=== PATIENT | male | born 1930 | race Caucasian/White ===

== ENCOUNTER 2020-09-08 15:12 | Inpatient (IN) | payer MEDICARE, OTHER ==
[~2020-09-08] VITALS: Ht 175.3 cm; Wt 79.8 kg
--- NOTE | ~2020-09-08 | EMS ---
[place] [address] EMS Patient Care Report Name: DARIO ACOSTA Room: [address] IN [facility]#: [id number] Admission: 09/08/20 Attend Phys: Thomas Olivarez Discharge: Date of : [birth year] Report #: [id number] THIS REPORT FOR: //name// Report Transmitted: 09/08/2020 16:41 EMS Care Summary [facility] Incident [id number] @ 09/08/2020 14:14 Incident Location [address] [place] [address] Patient DARIO ACOSTA Male, 89 Years 1930 Patient Address [address] [place] [address] Patient History Chronic Obstructive Pulmonary Disease (COPD),Dementia, Patient Allergies No known allergies, Patient Medications Flomax, Prednisone, Albuterol, Chief Complaint Dehydration Disposition Transported No Lights/[place] Dispatch Reason Sick Person Transported To [facility] Narrative Dispatch: [facility] was dispatched for a male patient experiencing diarrhea and generalized weakness. Med 1 copied tones and [place] [address] EMS Patient Care Report Name: DARIO ACOSTA Room: [address] IN [facility]#: [id number] Admission: 09/08/20 Attend Phys: Thomas Olivarez Discharge: Date of : [birth year] Report #: [id number] Chief Complaint: Med 1 arrived on scene to find the patient lying supine in his bed. Patient states he feels "sick" and has had diarrhea. Patient is alert and does not appear to be in any distress or discomfort. Patient's family states the diarrhea "hasn't stopped" and he is unable to keep anything in. History of present illness/DEANGELO: Patient has been experiencing diarrhea for approx. 2-3 days. Patient is unable to eat and drink without having diarrhea. Patient has a history of dementia, with that the patient is unable to describe to EMS what his chief complaint is. Assessment: Airway: Clear, patent, and self maintained. Breathing: Clear, and equal bilaterally. Non labored. Circulation: Skin is pink, warm, and dry. Strong radial pulses. Disability: A&OX1, GCS 15. Normal mental status for the patient. Exposures: No life threats were found. See "assessments" tab for further. Reason for ambulance: Patient is experiencing diarrhea, and generalized weakness. Requesting EMS treatment and transport to [facility]. Treatments: ALS assessment. 20G IV LAC. 12 lead EKG showing sinus tachycardia with RBBB. 2 liters O2 nasal cannula. Vitals monitored throughout transport. Summary: With the assistance of EMS, the patient was placed onto the cot, secured in place, and placed into the ambulance for transport. The patient was placed onto the monitor,and an IV was established. Med 1 went en route non emergent to [facility]. The patient's overall condition remained the same throughout transport. Radio report was given and no further questions or orders were received. Med 1 arrived at destination and the patient was taken to room 11 where he was sheet transferred onto the bed. Report was given and signatures and paperwork were received. Med 1 returned back in service. Initial Vitals @14:38P: 118,BP: 126/70,SpO2: 100, @14:45P: 116,SpO2: 98, @15:05P: 118,BP: 78/56,SpO2: 98, @15:08BP: 111/77, @14:50P: 117,BP: 127/71,SpO2: 98, @15:00P: 118,SpO2: 98, @14:25P: 110,R: 18,BP: 130/80,GCS: 15,Glucose: 109,SpO2: 99,Revised Trauma: 12, @14:30P: 0,SpO2: 93, @14:37 @14:55P: 117,SpO2: 97, [place] [address] EMS Patient Care Report Name: DARIO ACOSTA Room: [place] [address] ADM IN ..#: [id number] Admission: 09/08/20 Attend Phys: Thomas Olivarez Discharge: Date of : [birth year] Report #: [id number] @14:54MENTAL:Confused,Person Oriented,SKIN:HEENT:LUNG SOUNDS:ABDOMEN:PELVIS//GI:EXTREMITIES:Capillary Refill: Right Upper: < 2 Sec,PULSE:Radial: 2+ Normal,NEURO:@14:55MENTAL:Person Oriented,Confused,SKIN:HEENT:LUNG SOUNDS:ABDOMEN:PELVIS//GI:EXTREMITIES:Capillary Refill: Right Upper: < 2 Sec,PULSE:Radial: 2+ Normal,NEURO: Impression Dehydration Procedures @14:56ALS AssessmentResponse: UnchangedSucceeded@14:57Saline Lock 0cc (20 ga) Site: Antecubital-LeftResponse: UnchangedSucceeded@14:57Oxygen FlowRate: 2 Device: Nasal Cannula (NC) Response: UnchangedSucceeded@14:3812-Lead ECG@14:3712-Lead ECG Timeline 14:13,Call Received 14:14,Dispatched 14:15,En Route 14:17,On Scene 14:17,At Patient 14:25,BP: 130/80 M,PULSE: 110,RR: 18 R,SPO2: 99 Ox,ETCO2: ,B,PAIN: ,GCS: 15, 14:30,BP: / M,PULSE: 0,RR: R,SPO2: 93 Ox,ETCO2: ,BG: ,PAIN: ,GCS: , 14:36,Depart Scene 14:37,12-Lead ECG, 14:37,BP: / M,PULSE: ,RR: R,SPO2: Ox,ETCO2: ,BG: ,PAIN: ,GCS: , 14:38,12-Lead ECG, 14:38,BP: 126/70 M,PULSE: 118,RR: R,SPO2: 100 Ox,ETCO2: ,BG: ,PAIN: ,GCS: , 14:45,BP: / M,PULSE: 116,RR: R,SPO2: 98 Ox,ETCO2: ,BG: ,PAIN: ,GCS: , 14:50,BP: 127/71 M,PULSE: 117,RR: R,SPO2: 98 Ox,ETCO2: ,BG: ,PAIN: ,GCS: , 14:55,BP: / M,PULSE: 117,RR: R,SPO2: 97 Ox,ETCO2: ,BG: ,PAIN: ,GCS: , 14:56,ALS Assessment,Response: UnchangedSucceeded, 14:57,Saline Lock 0cc 20 ga Site: Antecubital-Left,Response: UnchangedSucceeded, 14:57,Oxygen FlowRate: 2 Device: Nasal Cannula (NC) Response: UnchangedSucceeded, 15:00,BP: / M,PULSE: 118,RR: R,SPO2: 98 Ox,ETCO2: ,BG: ,PAIN: ,GCS: , 15:05,BP: 78/56 M,PULSE: 118,RR: R,SPO2: 98 Ox,ETCO2: ,BG: ,PAIN: ,GCS: , 15:08,BP: 111/77 M,PULSE: ,RR: R,SPO2: Ox,ETCO2: ,BG: ,PAIN: ,GCS: , 15:09,At Destination 15:59,Call Closed Disclaimer v1.1 Copyright 2020 [employer] This EMS Care Summary contains data elements from [place] [address] EMS Patient Care Report Name: DARIO ACOSTA Room: [address] IN [facility]#: [id number] Admission: 09/08/20 Attend Phys: Thomas Olivarez Discharge: Date of : [birth year] Report #: [id number] (which may be displayed differently). It is designed to provide pertinent information for the following purposes: continuity of care, clinical quality, and state data reporting. The complete legal record is available to ED staff and administrators of the receiving hospital in [employer]'s Patient Tracker. All data is provided "as is."
[~2020-09-08 15:12] MED LIST: ALBUTEROL2.5 MG/31 INH; ASPIRIN325 PO; TRAMADOL 50 MG50 MG PO; VOLTAREN GEL 1100 G2 TOP
[2020-09-08 15:18] VITALS: BP 106/69
[2020-09-08] MEDS ORDERED: PREDNISONE 5 MG5 M1 PO (15:48)
[2020-09-08] MEDS ORDERED: ASPIR 8181 MG PO (15:48)
[2020-09-08] MEDS ORDERED: FLOMAX0.4 MG PO (15:48)
[2020-09-08] MEDS ORDERED: MUCINEX D ER 11 EACH PO (15:48)
[2020-09-08] MEDS ORDERED: DONEPEZIL HCL5 MG PO (15:49)
[2020-09-08 15:51] LABS: HEMOGLOBIN 14.6 gm/dL (14.0-18.0); MCH 30.7 pg (26.0-34.0); MCHC 33.2 g/dL (28.0-37.0); MCV 92.4 fL (80.0-100.0); MPV 7.2 fl. (7.2-11.1); NUCLEATED RBCS 0 /100WBC; PLATELET COUNT* 256 thou/uL (150-400); RBC 4.76 mil/uL (4.50-6.00); RDW-CV 12.9 % (10.5-14.5); WBC 24.2 thou/uL (4.0-11.0)
[2020-09-08 16:01] LABS: CALCIUM 8.2 mg/dL (8.5-10.1); CREATININE 1.9 mg/dL (0.6-1.3); POTASSIUM 4.1 mmol/L (3.5-5.1)
[2020-09-08 16:03] LABS: APTT 30.5 Seconds (25.0-31.3); INR 1.2; PROTIME 12.4 Seconds (9.20-11.50)
[2020-09-08 16:11] LABS: ALBUMIN 2.5 g/dL (3.4-5.0); TOTAL BILIRUBIN 1.2 mg/dL (<0.1-1.0); TOTAL PROTEIN 6.2 g/dL (6.4-8.2)
[2020-09-08 16:21] LABS: ABSOLUTE LYMPHOCYTES 0.5 thou/uL (0.8-5.3); ABSOLUTE NEUTROPHILS 22.7 thou/uL (1.6-8.1); PLATELET ESTIMATE ADEQUATE
[2020-09-08 18:00] VITALS: BP 104/60
[2020-09-08 18:01] VITALS: BP 110/61
[2020-09-08 22:00] VITALS: BP 107/64
[2020-09-09] VITALS (7 sets, daily range): BP systolic 100–127; BP diastolic 67–77
[2020-09-09 08:53] LABS: HEMATOCRIT 44.9 % (42.0-52.0); HEMOGLOBIN 14.6 gm/dL (14.0-18.0); MCH 30.2 pg (26.0-34.0); MCHC 32.6 g/dL (28.0-37.0); MCV 92.4 fL (80.0-100.0); MPV 7.7 fl. (7.2-11.1); RBC 4.85 mil/uL (4.50-6.00); RDW-CV 13.2 % (10.5-14.5); WBC 25.7 thou/uL (4.0-11.0)
[2020-09-09 09:00] LABS: CALCIUM 7.9 mg/dL (8.5-10.1); CREATININE 1.9 mg/dL (0.6-1.3); POTASSIUM 4.3 mmol/L (3.5-5.1)
--- NOTE | 2020-09-09 09:20 | EKG ---
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 : 1930 Requested By: Harish Erickson Order Number: [id number] MD: Arnold Lewis Measurements Intervals [place] Rate: 112 P: 67 KS: 136 QRS: 29 QRSD: 145 T: -9 QT: 347 QTc: 474 Interpretive Statements Sinus tachycardia Right bundle branch block Baseline wander in lead(s) V1 No previous ECG available for comparison Electronically Signed On 09-09-2020 9:20:33 CLIENT EXPERIENCE SPECIALIST by Arnold Lewis [email or web address] <ELECTRONICALLY SIGNED> By: Arnold Lewis MD, FAC 09/09/20 0920 1525 1525 Arnold Lewis MD, [facility] /EPI
[2020-09-09 23:22] LABS: BE -17.1 mmol/L (-2 to +3); PCO2 27.6 mmHg (35.0-45.0); PO2 115.2 mmHg (75.0-100.0)
[2020-09-09 23:28] LABS: pH 7.162 (7.340-7.450)
[2020-09-09 23:53] LABS: HEMATOCRIT 55.3 % (42.0-52.0); HEMOGLOBIN 17.9 gm/dL (14.0-18.0); MCH 30.6 pg (26.0-34.0); MCHC 32.4 g/dL (28.0-37.0); MCV 94.3 fL (80.0-100.0); MPV 8.5 fl. (7.2-11.1); NUCLEATED RBCS 1 /100WBC; RBC 5.87 mil/uL (4.50-6.00); RDW-CV 13.7 % (10.5-14.5)
[2020-09-09 23:59] LABS: CALCIUM 7.9 mg/dL (8.5-10.1); POTASSIUM 5.2 mmol/L (3.5-5.1)
[2020-09-10] VITALS (25 sets, daily range): BP systolic 57–203; BP diastolic 17–98
[2020-09-10] LABS: ALBUMIN 1.9 g/dL (3.4-5.0); MAGNESIUM 2.8 mg/dL (1.8-2.4); TOTAL BILIRUBIN 0.9 mg/dL (<0.1-1.0); TOTAL PROTEIN 5.2 g/dL (6.4-8.2)
[2020-09-10 00:08] LABS: PLATELET COUNT* 398 thou/uL (150-400)
[2020-09-10 00:09] LABS: WBC 47.4 thou/uL (4.0-11.0)
[2020-09-10 00:52] LABS: ABSOLUTE LYMPHOCYTES 5.7 thou/uL (0.8-5.3); ABSOLUTE MONOCYTES 1.9 thou/uL (0.0-1.2); ABSOLUTE NEUTROPHILS 39.8 thou/uL (1.6-8.1); ATYPICAL LYMPHS 2 %; CLUMPED PLTS FEW; METAMYELOCYTES 1 %; PLATELET ESTIMATE ADEQUATE
[2020-09-10 03:32] LABS: HEMOGLOBIN 17.5 gm/dL (14.0-18.0); MCH 30.1 pg (26.0-34.0); MCHC 32.4 g/dL (28.0-37.0); MPV 8.2 fl. (7.2-11.1); RBC 5.81 mil/uL (4.50-6.00); RDW-CV 13.5 % (10.5-14.5)
[2020-09-10 03:43] LABS: WBC 45.2 thou/uL (4.0-11.0)
[2020-09-10 03:56] LABS: ALBUMIN 1.7 g/dL (3.4-5.0); CALCIUM 7.3 mg/dL (8.5-10.1); MAGNESIUM 2.5 mg/dL (1.8-2.4); POTASSIUM 5.3 mmol/L (3.5-5.1); TOTAL BILIRUBIN 0.9 mg/dL (<0.1-1.0); TOTAL PROTEIN 4.7 g/dL (6.4-8.2)
[2020-09-10 08:39] LABS: MCHC 31.4 g/dL (28.0-37.0); MCV 95.6 fL (80.0-100.0); MPV 8.2 fl. (7.2-11.1); NUCLEATED RBCS 1 /100WBC; PLATELET COUNT* 317 thou/uL (150-400); RBC 4.91 mil/uL (4.50-6.00); RDW-CV 13.4 % (10.5-14.5)
[2020-09-10 08:41] LABS: HEMOGLOBIN 14.7 gm/dL (14.0-18.0)
[2020-09-10 08:42] LABS: WBC 59.2 thou/uL (4.0-11.0)
[2020-09-10 09:11] LABS: ALBUMIN 1.3 g/dL (3.4-5.0); CREATININE 4.4 mg/dL (0.6-1.3); TOTAL BILIRUBIN 0.8 mg/dL (<0.1-1.0); TOTAL PROTEIN 3.9 g/dL (6.4-8.2)
[2020-09-10 09:12] LABS: ABSOLUTE LYMPHOCYTES 8.9 thou/uL (0.8-5.3); ABSOLUTE MONOCYTES 4.7 thou/uL (0.0-1.2); ABSOLUTE NEUTROPHILS 45.6 thou/uL (1.6-8.1); PLATELET ESTIMATE ADEQUATE
[2020-09-10 09:13] LABS: POTASSIUM 6.5 mmol/L (3.5-5.1)
[2020-09-10 09:29] LABS: BE -18.8 mmol/L (-2 to +3)
[2020-09-10 09:33] LABS: PO2 372.3 mmHg (75.0-100.0)
[2020-09-10 11:52] LABS: BUN 63 mg/dL (7-18); CHLORIDE 117 mmol/L (98-107); GLUCOSE 226 mg/dL (70-99); POTASSIUM 4.1 mmol/L (3.5-5.1)
[2020-09-10 11:54] LABS: CALCIUM 5.4 mg/dL (8.5-10.1); CO2 > 45 mmol/L (21-32); CREATININE 3.4 mg/dL (0.6-1.3); SODIUM 170 mmol/L (136-145)
[2020-09-10 12:25] LABS: BE -13.8 mmol/L (-2 to +3); PCO2 40.8 mmHg (35.0-45.0)
[2020-09-10 12:27] LABS: PO2 132.4 mmHg (75.0-100.0); pH 7.162 (7.340-7.450)
[2020-09-10 13:04] LABS: HEMOGLOBIN 15.6 gm/dL (14.0-18.0); MCH 30.3 pg (26.0-34.0); MCHC 31.4 g/dL (28.0-37.0); MPV 8.8 fl. (7.2-11.1); NUCLEATED RBCS 1 /100WBC; RBC 5.15 mil/uL (4.50-6.00)
[2020-09-10 13:07] LABS: BASOPHILS 0.5 %; EOSINOPHILS 1.1 %; HEMATOCRIT 49.7 % (42.0-52.0); LYMPHOCYTES 6.1 %; MCV 96.5 fL (80.0-100.0); MONOCYTES 2.3 %
[2020-09-10 13:13] LABS: ABSOLUTE BASOPHILS 0.3 thou/uL (0.0-0.2); ABSOLUTE EOSINOPHILS 0.6 thou/uL (0.0-0.7); ABSOLUTE LYMPHOCYTES 3.5 thou/uL (0.8-5.3); ABSOLUTE MONOCYTES 1.3 thou/uL (0.0-1.2); ABSOLUTE NEUTROPHILS 50.9 thou/uL (1.6-8.1); PLATELET COUNT* 216 thou/uL (150-400)
[2020-09-10 13:14] LABS: WBC 56.6 thou/uL (4.0-11.0)
[2020-09-10 13:20] LABS: APTT 45.3 Seconds (25.0-31.3); INR 1.8; PROTIME 18.1 Seconds (9.20-11.50)
[2020-09-10 13:23] LABS: CALCIUM 6.8 mg/dL (8.5-10.1); POTASSIUM 5.2 mmol/L (3.5-5.1)
--- NOTE | 2020-09-10 13:37 | EKG ---
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 : 1930 Requested By: Panda Fuchs Order Number: [id number] José Miguel MD: Arnold Lewis Measurements Intervals [place] Rate: 117 P: 86 KS: 148 QRS: 55 QRSD: 146 T: -2 QT: 344 QTc: 480 Interpretive Statements Sinus tachycardia Right bundle branch block Baseline wander in lead(s) V1 Compared to ECG 09/08/2020 15:25:54 No significant changes Electronically Signed On 09-10-2020 13:37:43 FUNERAL PLANNING COUNSELOR by Arnold Lewis [email or web address] <ELECTRONICALLY SIGNED> By: Arnold Lewis MD, FAC 09/10/20 1337 2304 2304 Arnold Lewis MD, [facility] /EPI
--- NOTE | 2020-09-10 14:01 | EKG ---
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 : 1930 Requested By: Panda Fuchs Order Number: [id number] José Miguel MD: Arnold Lewis Measurements Intervals [place] Rate: 117 P: 83 AL: 147 QRS: 50 QRSD: 141 T: 1 QT: 337 QTc: 471 Interpretive Statements Sinus tachycardia Right bundle branch block Abnormal inferior Q waves Baseline wander in lead(s) V4 Compared to ECG 09/09/2020 23:04:46 no change Electronically Signed On 09-10-2020 14:01:32 REPAIRER TYPEWRITER by Arnold Lewis [email or web address] <ELECTRONICALLY SIGNED> By: Arnold Lewis MD, [facility] 09/10/20 1401 2305 2305 Arnold Lewis MD, [facility] /EPI
--- NOTE | 2020-09-10 14:09 | EKG ---
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: : 1930 Requested By: Panda Fuchs Order Number: [id number] José Miguel MD: Kevin Bartholomew Measurements Intervals [place] Rate: 150 P: NV: QRS: 134 QRSD: 146 T: 13 QT: 318 QTc: 503 Interpretive Statements Sinus tachycardia Right bundle branch block Compared to ECG 09/09/2020 23:05:52 Sinus tachycardia no longer present Ventricular premature complex(es) no longer present Electronically Signed On 09-10-2020 14:09:14 TECHNICAL TRAINING MANAGER by Kevin Bartholomew [email or web address] <ELECTRONICALLY SIGNED> By: Kevin Bartholomew MD, FACC 09/10/20 1409 0832 0832 Kevin Bartholomew MD, [facility] /EPI
--- NOTE | 2020-09-11 08:59 | CON ---
[address] [address] CONSULTATION Name: DARIO ACOSTA Room: [address] IN ..#: [id number] Admission: 09/08/20 Attend Phys: Thomas Olivarez Discharge: 09/10/20 Date of : [birth year] Report #: [id number] THIS REPORT FOR: cc: Mina Bowers MD, Matthew D MD ~ Yadira Noguera MD DATE OF SERVICE: 09/10/2020 NEPHROLOGY CONSULTATION CONSULTING PHYSICIAN: Dr. Cat. REASON FOR NEPHROLOGY CONSULTATION: Acute kidney injury with hyperkalemia. REASON FOR ADMISSION: Diarrhea and weakness going on for 4 days. HISTORY OF PRESENT ILLNESS: This is an 89-year-old male who has a history of dementia, was brought in because of diarrhea and weakness. His abdominal CT scan showed colitis and his creatinine was 1.9 on admission. We do not have a baseline creatinine on him. Home medications did not reveal any evidence of lisinopril or ARB use or NSAID use. His kidneys looked normal on abdominal CAT scan, which was done on admission. Yesterday, he became hypotensive, had a presyncopal event and was also found to have worsening kidney function and his C. diff also came back positive. At that point, he was transferred to the ICU and he has been getting fluids. This morning at 8:00 a.m., he had a PEA arrest lasted for about 10 minutes with return of spontaneous circulation and currently he is maxed out on Levophed. I am not sure how much urine he is making because he does not have a Buckley catheter which will be placed shortly. His creatinine has gone up to 4.4. His potassium has gone up from 5.3 to 6.5. His lactate is 4.8 but it is little bit better from 6.8. He also has evidence of mildly elevated troponin. He has significant leukocytosis and he is currently getting Zosyn. He also has evidence of possible perihilar infiltrates bilaterally with a possible pneumonia. When I saw him, he is intubated and sedated. ALLERGIES: NAPROXEN. REVIEW OF SYSTEMS: Not able to do because he was intubated and sedated. PAST MEDICAL AND SURGICAL HISTORY: Includes CVA, COPD, emphysema and dementia. HOME MEDICATIONS: Include tamsulosin, albuterol, prednisone, baby aspirin, Mucinex and ____. FAMILY HISTORY: Noncontributory, not able [place] [address] CONSULTATION Name: DARIO ACOSTA Room: [address]#: [id number] Admission: 09/08/20 Attend Phys: Thomas Olivarez Discharge: 09/10/20 Date of : [birth year] Report #: [id number] SOCIAL HISTORY: Not able to obtain from the patient. According to chart, he does not smoke, does not use illicit drugs, does not use alcohol. PHYSICAL EXAMINATION: VITAL SIGNS: Blood pressure is 135/89, temperature afebrile, pulse rate was 108, respiratory rate was 35 and he was satting 98% on the ventilator. GENERAL: He is currently intubated and sedated. HEAD AND EYE: Atraumatic and normocephalic. Conjunctivae normal. EARS, NOSE, AND THROAT: Normal ears, nose and ET tube in place. NECK: No JVD. CHEST: Bilateral diminished breath sounds. No crackles. CARDIOVASCULAR: S1, S2 normal. No murmurs. ABDOMEN: Distended. Tenderness could not be elicited. EXTREMITIES: Lower extremities, there is no lower extremity edema. NEUROLOGIC: The patient is currently sedated. PSYCHIATRIC: Not able to assess, he is currently sedated. LABORATORY DATA: White count 59,000, hemoglobin 14.7 and platelet count was 317. Sodium was 140, potassium was 6.5, CO2 was 19, BUN was 68, creatinine was 4.4, lactate was 4.8 and magnesium was 2.5. Troponin was 0.7. Other labs were reviewed. IMAGING: Chest x-ray and abdominal CT scan were reviewed. ASSESSMENT: 1. Acute kidney injury in the setting of septic shock, volume depletion. Baseline creatinine is not known, but he comes with a creatinine of 1.9 and creatinine has gone up to 4.4. I am not sure if he is not making any urine or not. Buckley catheter will be placed. Renal imaging will be repeated on admission when his creatinine was 1.9. Kidneys looked normal. 2. Septic shock likely because of C. diff colitis and pneumonia. He is on 1 vasopressin and currently getting IV fluids. Antibiotics as per primary team. 3. Hyperkalemia, status post cardiac arrest in the setting of metabolic acidosis and acute kidney injury. 4. Anion gap metabolic acidosis with metabolic alkalosis. 5. Lactic acidosis. 6. PEA arrest this morning 09/10/2020, etiology is not clear. 7. Chronic obstructive pulmonary disease. We will defer to primary team for management. 8. Coronary artery disease. We will defer to primary team for management with recent PEA arrest. 9. Dementia. 10. Transaminitis, likely shock liver. [facility] [address] [place] [address] CONSULTATION Name: DARIO ACOSTA Room: [address]#: [id number] Admission: 09/08/20 Attend Phys: Thomas Olivarez Discharge: 09/10/20 Date of : [birth year] Report #: [id number] PLAN: 1. We will put him on a bicarbonate drip, half normal saline with 75 mEq of sodium bicarbonate at 150 mL an hour. 2. Buckley catheter to be placed right now, he will also get a couple of amps of bicarbonate right now to help with his hyperkalemia, primary team has already ordered insulin and dextrose for him. If he is not making any urine, he is going to need dialysis after temporary dialysis line placement. 3. Ordered a renal ultrasound as well. CPK checked was 557. 4. The patient is critically ill, discussed with the patient's nurse as well as Dr. Cat, spent 35 minutes in critical care, this time was spent in chart review, placing orders and care coordination. 5. Optimize C. diff treatment, we will defer to primary team. Thank you. We will continue to follow with you. <ELECTRONICALLY SIGNED> By: Yadira Noguera MD 09/11/20 0859 0943 1023Amaximilian Noguera MD /nt
--- NOTE | 2020-09-11 22:10 | CON ---
[address] [address] CONSULTATION Name: DARIO ACOSTA Room: [address] IN .R.#: [id number] Admission: 09/08/20 Attend Phys: Thomas Olivarez Discharge: 09/10/20 Date of : [birth year] Report #: [id number] THIS REPORT FOR: cc: Mina Bowers MD, Matthew D MD ~ Abdifatah Browning MD DATE OF SERVICE: 09/10/2020 CONSULT REQUESTED BY: Dr. Patricia Cat. INDICATION FOR CONSULTATION: Acute hypoxemic respiratory failure. HISTORY OF PRESENT ILLNESS: An 89-year-old gentleman with past medical history is as mentioned below. The patient's creatinine on admission was around 1.7-1.8. We do not have a previous creatinine available. He is reported to have a history of COPD; however, there is no information regarding smoking in the past. The patient has now been admitted primarily with abdominal complaints. He has been feeling weak for several days. He did have dementia and therefore was able to provide only a limited history. According to the records he was having on and off diarrhea for 4 days, also some nausea and vomiting and decreased appetite. He was trying to have good oral hydration; however, was having liquid diarrhea whenever he took liquids by mouth. He also did have abdominal pain. The patient is reported to be mildly short of breath on admission. Since yesterday, there has been a worsening in his condition. The patient has progressively developed acute renal failure. His creatinine went up to 4.4 yesterday. He also became hypotensive and due to increasing respiratory distress as well as to protect his airway the patient was endotracheally intubated today. The patient is reported to have had coffee ground emesis as well as some coffee ground material suctioned from his endotracheal tube once he was intubated. The patient is currently on dopamine as well as phenylephrine. He is hypotensive. When I walked into the room, the patient had a narrow complex tachycardia with a heart rate of around 200 and pulse was then lost and therefore a code blue was called. During the code the patient did receive 2 amps of epinephrine in addition to 300 of amiodarone, we also administered 2 amps of bicarbonate. The patient did quickly have spontaneous return of circulation. The patient despite the above at this time, is in fact ventilating and oxygenating adequately. He has a profound metabolic acidosis with a pH of 7.00 with a mild respiratory acidosis. His Clostridium difficile is positive. The patient is unable to provide a further history or review of systems. PAST MEDICAL HISTORY: COPD, dementia, stroke. There is reported use of prednisone in the past. It is not fully clear to me [place] [address] CONSULTATION Name: DARIO ACOSTA Room: [address] IN M.R.#: [id number] Admission: 09/08/20 Attend Phys: Thomas Olivarez Discharge: 09/10/20 Date of : [birth year] Report #: [id number] to long-term use of prednisone or not. SOCIAL HISTORY: There is no documented history of smoking, ethanol abuse or drug abuse; however, he is reported to have COPD and possible long-term use of prednisone as above. ALLERGIES: NAPROXEN. FAMILY HISTORY: There is no pertinent family history known at this time. CURRENT MEDICATIONS: List in [facility] reviewed. HOME MEDICATIONS: The list in [facility] also reviewed. Note that 5 mg of prednisone is mentioned on the home medication list. PHYSICAL EXAMINATION:: VITAL SIGNS: He had a heart rate of around 200 and an irregular narrow complex tachycardia rhythm. Initially, blood pressure was around 60 systolic and the patient quickly did not have a palpable pulse. ER physician responded to the code. He has been resuscitated, currently with pressors running. We are maintaining a blood pressure with a MAP of 65. The last recorded blood pressure is 100/55. He has a pulse of around 110 at this time. His pulse ox is not palpable; however, he is oxygenating adequately on his arterial blood gases. His respiratory rate is in the mid 20s. He is afebrile with a temperature of 36.1. HEENT: Head is normocephalic and atraumatic. Endotracheal tube is in place. NECK: Does not show raised JVP, asymmetry, mass or lymph nodes. CHEST: Symmetrical expansion on inspection and palpation. On auscultation, breath sounds are bilaterally equal. I do not hear any added sounds. HEART: Irregular. There is no murmur. ABDOMEN: Markedly distended. There is no obvious tenderness. EXTREMITIES: Lower extremities show no edema and no calf tenderness. SKIN: Dry and intact. NEUROLOGICAL: He does move all extremities to pain. IMAGING AND LABORATORY DATA: CT abdomen and pelvis report from the also reviewed. I also reviewed the lower chest films which do show some small infiltrates. A chest x-ray repeated several times in [facility] reviewed. He does have a profound leukocytosis with a WBC count of 59. His CBC is repeated several times in addition to chemistries which show acute renal failure and marked electrolyte abnormalities in [facility] reviewed. Coagulation studies from the in [facility] reviewed. Arterial blood gases in [facility] also reviewed. He is currently on a tidal volume of 550 with an AC rate of 18, 60% FiO2, 5 [place] [address] CONSULTATION Name: DARIO ACOSTA Room: [address] IN .R.#: [id number] Admission: 09/08/20 Attend Phys: Thomas Olivarez Discharge: 09/10/20 Date of : [birth year] Report #: [id number] ASSESSMENT AND PLAN: 1. Acute hypoxemic respiratory failure. The patient in fact is ventilating and oxygenating adequately with the ventilator in place. Therefore, I would recommend being liberal with fluids for now considering that he is in acute renal failure and he is hypotensive. Arterial blood gases currently show a metabolic acidosis. If needed, will give him fentanyl as well as Versed p.r.n. for sedation. 2. Sepsis/C. difficile colitis, we went ahead and added Flagyl. Discontinued doxycycline for now, continued with Zosyn. He appears to be having an upper gastrointestinal bleed, which is the reason that p.o. vancomycin was not ordered. The GI service is on the case. 3. Upper gastrointestinal bleed, would defer management to the GI service. The patient is on a Protonix drip and also his CBCs are being followed. 4. Acute renal failure with marked electrolyte abnormalities. His albumin is only 1.3. He should be able to tolerate significant amounts of volume from a respiratory point of view considering that he is significantly hypotensive, I went ahead and ordered IV albumin, I favor also giving him a fluid bolus. I understand that the Nephrology service is considering hemodialysis. 5. Septic shock. fluid resuscitation as above. Hopefully with fluids and albumin we will be able to back off on his dopamine, which may help with his arrhythmias/tachycardia. I would go ahead and obtain an echocardiogram as well. 6. Chronic obstructive pulmonary disease. There is no obvious sign of exacerbation. We will follow if he remains stable from a respiratory point of view, I will be inclined to cut back on Solu-Medrol soon. Once his heart rate is under control I do intend to start nebulized bronchodilators. 7. Deep vein thrombosis prophylaxis. I held his Lovenox as well as aspirin due to upper gastrointestinal bleed. The patient is critically ill at this time. Total time spent providing critical care to this patient today exceeds 45 minutes. <ELECTRONICALLY SIGNED> By: Abdifatah Browning MD 09/11/20 2210 1235 [id number] Browning MD /nt
== END 2020-09-10 13:58 | DRG 871 ==
LOC: M.ERS 15:12 → M.TBA-ER 16:08 → M.2W 16:08 → M.ICU 09-10 01:14
PROVIDERS: Family Medicine; Internal Medicine; Internal Medicine Critical Care Medicine; ADMIT Internal Medicine; ATTEND Internal Medicine
PROC: B548ZZA Ultrasonography of Superior Vena Cava, Guidance (ICD-10-PCS; principal; 2020-09-08)
PROC: 02HV33Z Insertion of Infusion Device into Superior Vena Cava, Percutaneous Approach (ICD-10-PCS; principal; 2020-09-08)
PROC: 5A09357 Assistance with Respiratory Ventilation, Less than 24 Consecutive Hours, Continuous Positive Airway Pressure (ICD-10-PCS; 2020-09-10)
PROC: 5A1935Z Respiratory Ventilation, Less than 24 Consecutive Hours (ICD-10-PCS; 2020-09-10)
PROC: 0BH17EZ Insertion of Endotracheal Airway into Trachea, Via Natural or Artificial Opening (ICD-10-PCS; 2020-09-10)
DX: A41.9 Sepsis, unspecified organism (principal); N17.0 Acute kidney failure with tubular necrosis; R65.21 Severe sepsis with septic shock; J96.01 Acute respiratory failure with hypoxia; G93.41 Metabolic encephalopathy; J15.9 Unspecified bacterial pneumonia; J69.0 Pneumonitis due to inhalation of food and vomit; A04.72 Enterocolitis due to Clostridium difficile, not specified as recurrent; K92.2 Gastrointestinal hemorrhage, unspecified; I48.20 Chronic atrial fibrillation, unspecified; E87.0 Hyperosmolality and hypernatremia; I25.10 Atherosclerotic heart disease of native coronary artery without angina pectoris; J43.9 Emphysema, unspecified; F03.90 Unspecified dementia, unspecified severity, without behavioral disturbance, psychotic disturbance, mood disturbance, and anxiety; I46.9 Cardiac arrest, cause unspecified; E87.5 Hyperkalemia; E86.9 Volume depletion, unspecified; Z66 Do not resuscitate; Z20.822 Contact with and (suspected) exposure to COVID-19; Z86.73 Personal history of transient ischemic attack (TIA), and cerebral infarction without residual deficits; Z79.82 Long term (current) use of aspirin; Z79.899 Other long term (current) drug therapy